=== PATIENT | female | born 1980 | race Hispanic/Latino ===

== ENCOUNTER 2018-05-22 01:22 | Emergency (ER) | payer BC ==
[2018-05-22 01:42] VITALS: BMI 22.4
[2018-05-22 01:52] VITALS: BP 119/73; PULSE 84; RESP 18; TEMP 98; O2SAT 100
--- NOTE | 2018-05-22 02:46 | ED PDOC ---
HPI: Female Pain Time Seen by Provider: 05/22/18 02:00 Chief Complaint (Nursing): Female Genitourinary Chief Complaint (Provider): ; vaginal bleeding History Per: Patient History/Exam Limitations: no limitations Onset/Duration Of Symptoms: Hrs (2) Current Symptoms Are (Timing): Still Present Quality Of Discomfort: Cramping Additional Complaint(s): 38 y/o female, approximately 7 weeks gestation presents for evaluation of vaginal bleeding x 2 hours. Patient states she woke up to use the bathroom and saw blood with tissue on paper when wiping, which prompted ED visit. Notes some mild cramping, with . Denies fever, nausea/vomiting, chest pain, shortness of breath, palpitations, urinary symptoms, changes in bowel movements. Past Medical History Reviewed: Historical Data, Nursing Documentation, Vital Signs Vital Signs: Last Vital Signs Temp 98.0 F 05/22/18 01:42 Pulse 84 05/22/18 01:42 Resp 18 05/22/18 01:42 BP 119/73 05/22/18 01:42 Pulse Ox 100 05/22/18 01:42 - Medical History PMH: No Chronic Diseases - Surgical History Surgical History: No Surg Hx - Family History Family History: States: No Known Family Hx - Allergies Allergies/Adverse Reactions: Allergies Allergy/AdvReac Type Severity Reaction Status Date / Time No Known Allergies Allergy Verified 05/22/18 01:41 Review of Systems ROS Statement: Except As Marked, All Systems Reviewed And Found Negative Genitourinary Female: Positive for: Vaginal Bleeding Physical Exam - Reviewed Nursing Documentation Reviewed: Yes Vital Signs Reviewed: Yes - Physical Exam Appears: Positive for: Well, Non-toxic, No Acute Distress Head Exam: Positive for: ATRAUMATIC, NORMAL INSPECTION, NORMOCEPHALIC Skin: Positive for: Normal Color Eye Exam: Positive for: Normal appearance ENT: Positive for: Normal ENT Inspection Cardiovascular/Chest: Positive for: Regular Rate, Rhythm Respiratory: Positive for: Normal Breath Sounds Gastrointestinal/Abdominal: Positive for: Normal Exam, Bowel Sounds, Soft. Negative for: Tenderness Pelvic Exam: Positive for: External Exam Normal, No Cerv. 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 Negative for: Active Bleeding Back: Positive for: Normal Inspection Extremity: Positive for: Normal ROM Neurologic/Psych: Positive for: Alert, Oriented (x3) - ECG O2 Sat by Pulse Oximetry: 100 - Progress ED Course And Treament: Patient refusing blood work; states she just wants ultrasound Patient states her blood type is O positive EXAM: US Obstetrical, Complete <14 weeks CLINICAL HISTORY: Vaginal bleeding TECHNIQUE: Transvaginal imaging of the maternal pelvis and a <14 week gestation with image documentation. COMPARISON: None provided. FINDINGS: GESTATION: Single live IUP, dated at 7 w 2 d as per pole of 1.17 cm, Yoke sac is seen. FHR is 135 BPM. UTERUS: Two small subchorionic hemorrhages are noted each measuring under 10 mm. Unremarkable. No myometrial mass. CERVIX: Closed. Several Nabothian cysts are noted. Unremarkable. OVARIES: Bilateral complex ovarian cysts. Unremarkable otherwise. No mass. FREE FLUID: No free fluid. IMPRESSION: Single viable intrauterine , 7 w 2 d, Two small subchorionic hemorrhages. Patient educated on findings, discharged with instructions to follow up with Behavioral Science Chair within 2 days Advised pelvic rest Return precautions given Disposition - Clinical Impression Clinical Impression: Subchorionic bleed - Patient ED Disposition Is Patient to be Admitted: No Counseled Patient/Family Regarding: Studies Performed, Diagnosis, Need For Followup - Disposition Disposition: Routine/Home Disposition Time: 05:25 Condition: STABLE Instructions: Bleeding With Forms: [employer] ([place]ian)
--- NOTE | 2018-05-22 18:28 | US ---
Date of service: 05/22/2018 HISTORY: : vaginal bleeding COMPARISON: None available. TECHNIQUE: Transvaginal sonographic evaluation of the pelvis performed. FINDINGS: UTERUS: The uterus measures approximate 8.2 x 7.5 x 5.3 cm. Uterus is retroverted. ENDOMETRIUM: There is a somewhat peanut shaped intrauterine gestational sac.. There is a single living intrauterine gestation. Small areas of presumed subchorionic hemorrhage present the 1st measuring 7.3 x 5.5 x 7.2 mm and the 2nd measuring 1.0 x 0.6 x 0.8 cm. Measurements: Gestational sac: MS D = 2.57 cm = 7 weeks 2 days Yolk sac: 0.2 to pole: CRL = 1.17 = 7 weeks 2 days Heart motion: 135 BPM Average ultrasound age: 7 weeks 2 days +/-0 weeks 4 days ZARINA: 01/06/2019 LMP = 03/30/2018 CERVIX: Cervix measures approximately 3.44 and is closed. Small nabothian cyst present RIGHT OVARY: Measures 4.1 x 3.6 x 2.2 cm. Complex appearing cyst measuring approximately 3.0 x 2.1 x 2.3 cm. Normal flow. LEFT OVARY: Measures 4.9 x 2.8 x 2.9 cm. Complex cyst measuring approximately 2.7 x 2.8 x 2.5 cm. Normal flow. FREE FLUID: No significant free fluid noted. OTHER FINDINGS: None. IMPRESSION: Single living intrauterine gestation estimated at approximately 7 weeks 2 days +/-0 weeks 4 days. Small areas of subchorionic hemorrhage. Continued ultrasound follow-up recommended Complex appearing bilateral ovarian cysts.
== END 2018-05-22 05:28 | disposition home or self-care (01) ==
LOC: H.ER 01:22
DX: O20.9 Hemorrhage in early pregnancy, unspecified (principal); Z3A.01 Less than 8 weeks gestation of pregnancy; N83.201 Unspecified ovarian cyst, right side; N83.202 Unspecified ovarian cyst, left side; O34.81 Maternal care for other abnormalities of pelvic organs, first trimester